=== PATIENT | male | born 1965 | race Caucasian/White ===

== ENCOUNTER 2018-02-11 12:12 | Outpatient (CLI) ==
--- NOTE | 2018-02-11 13:11 | DI ---
EXAM: Radiographs, lumbar spine HISTORY: Back pain. COMPARISON: None available. TECHNIQUE: Five views. FINDINGS: Curvature and alignment are normal. Vertebral body heights are maintained. There is mild loss of disc height from L2-3 through L4-5. Mild multilevel endplate osteophyte formation and facet arthropathy noted. No acute fractures seen in the lumbar spine. There is mild wedging deformity of T12 which demonstrates smooth margins. Sacral arcuate lines are intact. Multiple calcifications ov erlie the left renal silhouette measuring up to 0.9 cm diameter. IMPRESSION: 1. Mild multilevel degenerative changes. 2. Old appearing mild T12 compression deformity. 3. Left nephrolithiasis.
== END 2018-02-11 12:13 | disposition home or self-care (01) ==
LOC: RAD 12:12
PROVIDERS: ATTEND Family Medicine
DX: M54.5 Low back pain (principal)